=== PATIENT | female | born 1960 ===

== ENCOUNTER 2020-05-13 07:25 | Day surgery (SDC) | payer OTHER ==
[~2020-05-13 07:25] MED LIST: ATACAND HCT 321 EAC1 PO; SINGULAIR10 MG PO
[2020-05-13] MEDS ORDERED: IBU400 MG PO (12:16)
== END 2020-05-13 16:00 | disposition home or self-care (01) ==
LOC: CIR.AMB 07:25
PROVIDERS: ATTEND Obstetrics & Gynecology Gynecology
DX: N84.0 Polyp of corpus uteri (principal); Z20.828 Contact with and (suspected) exposure to other viral communicable diseases